=== PATIENT | female | born 1970 | race Caucasian/White ===

== ENCOUNTER → 2016-10-31 | Outpatient (CLI) | payer OTHER ==
--- NOTE | 2016-11-07 14:57 | REPMRS ---
Patient History The patient states she has not had a clinical breast exam in over a year. Patient has history of skin cancer at age 32 and is nulliparous. Family history of breast cancer in mother under age 50 and breast cancer in maternal grandmother at age 45. Benign excisional biopsy of the left breast, 2009. Digital Woman Screen Mammo: October 31, 2016 - Exam #: [id number] Bilateral CC and MLO view(s) were taken. Technologist: Deepthi Moise, Technologist Prior study comparison: 2014, digital bilateral screening mammo, [facility]. April 15, 2013, digital bilateral screening mammo, performed [facility]. FINDINGS: The breast tissue is heterogeneously dense. This may lower the sensitivity of mammography. There is a moderate amount of heterogeneously dense fibroglandular tissue which is fairly symmetric. There are scattered surgical clips in the upper outer quadrant of the left breast. There is no interval development of dominant mass, architectural distortion, or clustered microcalcification typical of malignancy. There has been no change in the appearance of the mammogram from the prior studies. ASSESSMENT: BI-RADS/ACR category 2 mammogram. Benign finding(s). Recommendation Breast MRI of both breasts. In patients with estimated lifetime risk assessment greater than 20%, annual screening breast MRI scanning is warranted. This patient's estimated lifetime risk assessment is 23%. Routine screening mammogram of both breasts in 1 year (for women over age 40). This mammogram was interpreted with the aid of an FDA-approved computer-aided dectection system. Electronically Signed By: Keo Escalante MD 11/07/16 0026
== END ==
LOC: M WHC 14:36
PROVIDERS: ATTEND Family Medicine
DX: Z12.31 Encounter for screening mammogram for malignant neoplasm of breast (principal); Z86.018 Personal history of other benign neoplasm; Z80.3 Family history of malignant neoplasm of breast

== ENCOUNTER → 2018-11-19 | Outpatient (CLI) | payer OTHER ==
--- NOTE | 2018-11-19 15:03 | REPMRS ---
Patient History The patient states she has not had a clinical breast exam in over a year. Patient has history of other cancer at age 32 and is nulliparous. Family history of breast cancer at age 45 in mother, breast cancer at age 45 in maternal grandmother. Benign excisional biopsy of the left breast, 2009. Digital Woman Screen Mammo: November 19, 2018 - Exam #: [id number] Bilateral CC and MLO view(s) were taken. Technologist: Lupe Rodriguez, Technologist Prior study comparison: October 31, 2016, digital woman screen mammo performed at [facility]. April 15, 2013, digital bilateral screening mammo, [facility]. April 07, 2012, bilateral digital woman screen mammo, performed at [facility]. FINDINGS: The breast tissue is heterogeneously dense. This may lower the sensitivity of mammography. There are scattered surgical clips in the upper outer quadrant on the left again noted unchanged. There is a moderate amount of heterogeneously dense fibroglandular tissue which is fairly symmetric. There is no interval development of dominant mass, architectural distortion, or clustered microcalcification typical of malignancy. There has been no change in the appearance of the mammogram from the prior studies. 3-D tomosynthesis shows no additional findings. Assessment: BI-RADS/ACR category 2 mammogram. Benign Findings. Recommendation Breast MRI of both breasts in 6 months. Routine screening mammogram of both breasts in 1 year (for women over age 40). This patient's Lifetime Breast Cancer RIsk is estimated at 31.6 %. Annual screening Breast MRI scanniing is recommended for patient's whose lifetime risk assessment is over 20%. This mammogram was interpreted with the aid of an FDA-approved computer-aided dectection system. Electronically Signed By: Keo Escalante MD 11/19/18 [id number]
== END ==
LOC: M WHC 12:48
PROVIDERS: ATTEND Family Medicine
DX: Z12.31 Encounter for screening mammogram for malignant neoplasm of breast (principal); Z85.89 Personal history of malignant neoplasm of other organs and systems; Z80.3 Family history of malignant neoplasm of breast; Z86.018 Personal history of other benign neoplasm

== ENCOUNTER → 2020-06-26 | Outpatient (CLI) | payer OTHER ==
--- NOTE | 2020-06-26 17:03 | REPMRS ---
Patient History The patient states she has not had a clinical breast exam in over a year. Family history of breast cancer at age 45 in mother, breast cancer at age 45 in maternal grandmother. Benign excisional biopsy of the left breast, 2009. 3D TOMOSYNTHESIS WAS PERFORMED. Volpara breast density c. Digital Woman Screen Mammo: June 26, 2020 - Exam #: [id number] Bilateral CC and MLO view(s) were taken. Technologist: Mary Dash, Technologist Prior study comparison: November 19, 2018, bilateral digital woman screen mammo performed at [facility]. October 31, 2016, digital woman screen mammo performed at [facility]. FINDINGS: The breast tissue is heterogeneously dense. This may lower the sensitivity of mammography. There has been no change in the appearance of the mammogram from the prior studies. There is a moderate amount of residual fibroglandular tissue which is fairly symmetric. There is no interval development of dominant mass, areas of architectural distortion, or clustered microcalcification typical of malignancy. Assessment: BI-RADS/ACR category 1 mammogram. Negative Mammogram. Recommendation Routine screening mammogram in 1 year (for women over age 40). This mammogram was interpreted with the aid of an FDA-approved computer-aided dectection system. THE LIFETIME RISK OF BREAST CANCER IS 30.6%, THEREFORE SUPPLEMENTAL SCREENING MRI OF THE BREASTS IS RECOMMENDED IN 6 MONTHS. Electronically Signed By: Armaan Cheema MD 06/26/20 [id number]
== END ==
LOC: M WHC 14:28
PROVIDERS: ATTEND Emergency Medicine
DX: Z12.31 Encounter for screening mammogram for malignant neoplasm of breast (principal); Z80.3 Family history of malignant neoplasm of breast; Z86.018 Personal history of other benign neoplasm; Z15.01 Genetic susceptibility to malignant neoplasm of breast

== ENCOUNTER → 2020-12-26 | Outpatient (CLI) | payer OTHER ==
--- NOTE | 2020-12-27 08:20 | REP ---
INDICATION: N63.10 RT BREAST DENSITY,EVALUATE FOR ABNORMALITY. Right breast lump on clinician breast exam at 8 o'clock position, 6 cm from the nipple. The patient states she cannot feel this lump. COMPARISON: Comparison right-sided mammography June 26, 2020, November 19, 2018, and October 31, 2016. TECHNIQUE: Routine views of the right breast are augmented by 3D tomography and a true mediolateral view. Targeted right breast sonography is performed. This mammogram was interpreted with the aid of an FDA-approved computer-aided detection system. FINDINGS: Breast parenchyma is heterogeneously dense in a pattern which may inhibit the sensitivity of mammography but which is unchanged from comparison studies. In the upper outer quadrant of the right breast, there is a 1.5 cm largely well-circumscribed oval-shaped nodule. The inferolateral quadrant where the clinician breast exam is abnormal is mammographically unremarkable. No other mammographic finding. The Volpara volumetric breast density pattern is C. Targeted ultrasound: Targeted right breast sonography is carried out. The upper outer quadrant and the inferolateral quadrant are examined sonographically. In the 10 o'clock position of the right breast there is a cyst measuring 1.5 x 1.0 x 1.4 cm located 7 cm from the nipple. This is felt to account for the mammographic opacity. No mass, acoustic shadowing or other suspicious sonographic finding is seen. IMPRESSION: BIRADS/ACR category 2 benign right breast mammographic and sonographic findings. 1.5 cm cyst is noted in the upper outer quadrant. Right breast imaging is otherwise unremarkable. This patient's estimated Tyrer-Cuzick lifetime risk assessment for breast cancer is 30.6%. Enhanced screening in the form of annual bilateral breast MRI scanning is warranted. RECOMMENDATION: Repeat screening mammography recommended 1 year (for women over 40). Bilateral breast MRI scanning is recommended annually, beginning 6 months from now. The patient letter being requested is M2 dense. <Electronically signed by Keo Escalante > 12/27/20 [id number]
== END ==
LOC: M WHC 14:00
PROVIDERS: ATTEND Surgery
DX: N63.10 Unspecified lump in the right breast, unspecified quadrant (principal)

== ENCOUNTER → 2021-01-16 | Outpatient (CLI) | payer OTHER ==
[~2021-01-16] MED LIST: PROHANCE 279.3MG/ML 15ML VIAL As Ordered ONE
== END ==
LOC: M RAD 14:59
PROVIDERS: ATTEND Surgery
DX: N63.10 Unspecified lump in the right breast, unspecified quadrant (principal); Z91.89 Other specified personal risk factors, not elsewhere classified

== ENCOUNTER → 2022-05-29 | Outpatient (CLI) | payer OTHER | LOC: M WHC 13:06 | PROVIDERS: ATTEND Nurse Practitioner Primary Care | DX: Z12.31 Encounter for screening mammogram for malignant neoplasm of breast (principal) ==

== ENCOUNTER → 2023-07-28 | Outpatient (CLI) | payer OTHER | LOC: M WHC 08:30 | PROVIDERS: ATTEND Nurse Practitioner Primary Care | DX: Z12.31 Encounter for screening mammogram for malignant neoplasm of breast (principal) ==